=== PATIENT | male | born 1930 | race Caucasian/White ===

== ENCOUNTER 2018-08-15 09:41 | Emergency (ER) | payer OTHER ==
[2018-08-15 11:37] LABS: Absolute Lymphocytes (CBC) 1.3 K/uL (0.7-4.9); Basophils % 0.7 % (0-1.3); Eosinophils % 2.1 % (0-4.4); Hematocrit 43.3 % (39.6-49.0); Lymphocytes % 27.1 % (15.3-44.8); MPV 7.9 fL (7.6-11.3); Monocytes % 9.2 % (3.3-12.3); RBC Red Blood Cell Count 5.01 M/uL (4.33-5.43)
[2018-08-15 11:49] LABS: Potassium 4.8 mmol/L (3.5-5.1)
[2018-08-15 12:18] LABS: Urine Bacteria LOADED /HPF (NONE SEEN); Urine Culture Reflex Order NOT NEEDED; Urine RBC <5 /HPF (NONE SEEN)
[2018-08-15 12:19] LABS: Urine Blood TRACE (NEG); Urine Glucose NEGATIVE (NEG); Urine Protein TRACE (NEG); Urine Specific Gravity 1.015 (1.005-1.030)
[2018-08-15 12:19] LABS: Urine Amorphous Sediment 2+ /HPF (NONE SEEN)
--- NOTE | 2018-08-15 12:47 | ER ---
Nurse's Notes [facility] Name: Chetan Vasquez Age: 88 yrs Sex: Male : 1930 Arrival Date: 08/15/2018 Time: 09:43 Bed 6 Private MD: Diagnosis: Bacterial colonization of bladder;Asymptomatic bacteriuria Presentation: 08/15 10:02 Presenting complaint: Child states: He was seen at the [place] a few weeks ago and they did ph a urine culture and said that he needed to come up here for IV antibiotics because the bacteria is resistant to oral antibiotics." Pt denies urinary symptoms, also denies fever, abdominal pain N/V. Transition of care: patient was not received from another setting of care. Onset of symptoms was August 15, 2018. Risk Assessment: Do you want to hurt yourself or someone else? Patient reports no desire to harm self or others. Initial Sepsis Screen: Does the patient meet any 2 criteria? No. Patient's initial sepsis screen is negative. Does the patient have a suspected source of infection? Yes: Dysuria/Frequency/Urgency/UTI. Care prior to arrival: None. 10:02 Method Of Arrival: Ambulatory ph 10:02 Acuity: SHABNAM 4 ph Historical: - Allergies: 10:23 Sulfa (Sulfonamide Antibiotics); ph - Home Meds: 10:23 lisinopril 20 mg Oral tab 1 tab once daily [Active]; metoprolol tartrate 12.5 mg Oral ph tab 2 times per day [Active]; apixaban oral oral 5 mg 2 times per day [Active]; atorvastatin 40 mg oral tab 1 tab once daily [Active]; finasteride 5 mg oral tab 1 tab once daily [Active]; tamsulosin 0.4 mg oral cp24 1 cap once daily [Active]; - PMHx: 10:23 Hyperlipidemia; Hypertension; prostate problems; ph - PSHx: 10:23 partial colon removal; ph - Immunization history:: Adult Immunizations unknown. - Social history:: Smoking status: Patient uses tobacco products, cigars. - Family history:: not pertinent. - Ebola Screening: : No symptoms or risks identified at this time. - Hospitalizations: : No recent hospitalization is reported. Screenin:30 Abuse screen: Denies threats or abuse. Denies injuries from another. Nutritional ph screening: No deficits noted. Tuberculosis screening: No symptoms or risk factors identified. Fall Risk None identified. Assessment: 10:15 General: Appears in no apparent distress. comfortable, slender, well groomed, Behavior ph is calm, cooperative, appropriate for age, Denies fever, feeling ill. Pain: Denies pain. Neuro: Level of Consciousness is awake, alert, obeys commands, Oriented to person, place, time, situation. Cardiovascular: Capillary refill < 3 seconds in bilateral fingers Patient's skin is warm and dry. Respiratory: Airway is patent Respiratory effort is even, unlabored, Respiratory pattern is regular, symmetrical. GI: Patient currently denies abdominal pain, diarrhea, nausea, vomiting. : Reports urinary frequency, Denies burning with urination, inability to void, pain in suprapubic area with urination. Derm: Skin is intact, is healthy with good turgor, Skin is pink, warm \\T\\ dry. Musculoskeletal: Circulation, motion, and sensation intact. Range of motion: intact in all extremities. 11:30 Reassessment: Patient appears in no apparent distress at this time. Patient and/or ph family updated on plan of care and expected duration. Pain level reassessed. Patient is alert, oriented x 3, equal unlabored respirations, skin warm/dry/pink. 12:30 Reassessment: Patient appears in no apparent distress at this time. Patient and/or ph family updated on plan of care and expected duration. Pain level reassessed. Patient is alert, oriented x 3, equal unlabored respirations, skin warm/dry/pink. Pt resting quietly, awaiting lab and radiology results. Vital Signs: 10:04 BP 145 / 85; Pulse 62; Resp 18; Temp 97.5; Pulse Ox 98% on R/A; Weight 77.11 kg; Pain ph 0/10; 11:00 BP 136 / 78; Pulse 59; Resp 16; Pulse Ox 99% on R/A; ph 12:00 BP 142 / 67; Pulse 61; Resp 16; Pulse Ox 98% on R/A; ph 13:00 BP 129 / 78; Pulse 62; Resp 16; Temp 97.8; Pulse Ox 99% on R/A; Pain 0/10; ph ED Course: 09:43 Patient arrived in ED. mr 09:52 Glenn Gilliam MD is Attending Physician. rn 10:02 Romero, Nirmala, RN is Primary Nurse. ph 10:04 Triage completed. ph 10:24 Arm band placed on. ph 10:30 Patient has correct armband on for positive identification. Bed in low position. Call ph light in reach. Side rails up X 1. Pulse ox on. NIBP on. 11:00 First set of blood cultures drawn by me. jb1 11:15 Second set of blood cultures drawn by me. jb1 11:16 Initial lab(s) drawn, by me, sent to lab. Inserted saline lock: 24 gauge in right jb1 wrist, using aseptic technique. Blood collected. 13:05 No provider procedures requiring assistance completed. IV discontinued, intact, ph bleeding controlled, No redness/swelling at site. Pressure dressing applied. Administered Medications: No medications were administered Outcome: 12:46 Discharge ordered by . rn 13:08 Patient left the ED. ph 13:08 Discharged to home ambulatory, with family. ph 13:08 Condition: good 13:08 Discharge instructions given to patient, family, Instructed on discharge instructions, follow up and referral plans. Demonstrated understanding of instructions, follow-up care. Signatures: Dami Nettles 1 Annabelle Moon Roman, MD MD rn Hall, Patricia, RN RN ph
--- NOTE | 2018-08-15 12:47 | EDPHYS ---
Physician Documentation [facility] Name: Chetan Vasquez Age: 88 yrs Sex: Male : 1930 Arrival Date: 08/15/2018 Time: 09:43 Bed 6 Private MD: ED Physician Glenn Gilliam HPI: 08/15 10:06 This 88 yrs old Male presents to ER via Ambulatory with complaints of Urinary rn Problem. 10:06 The patient presents with. Onset: The symptoms/episode began/occurred at an unknown rn time. Severity of symptoms: At their worst the symptoms were very mild, in the emergency department the symptoms are unchanged. The patient has not experienced similar symptoms in the past. Family reports sent from [place] clinic for admission for IV abx, based on urine sample obtained 2 weeks ago that shows resistant UTI, S. Epi, and told oral abx would not work in this situation. Patient denies symptoms, does have known prostate problems, but no fever/abd pain/confusion/urinary symptoms. . Historical: - Allergies: 10:23 Sulfa (Sulfonamide Antibiotics); ph - Home Meds: 10:23 lisinopril 20 mg Oral tab 1 tab once daily [Active]; metoprolol tartrate 12.5 mg Oral ph tab 2 times per day [Active]; apixaban oral oral 5 mg 2 times per day [Active]; atorvastatin 40 mg oral tab 1 tab once daily [Active]; finasteride 5 mg oral tab 1 tab once daily [Active]; tamsulosin 0.4 mg oral cp24 1 cap once daily [Active]; - PMHx: 10:23 Hyperlipidemia; Hypertension; prostate problems; ph - PSHx: 10:23 partial colon removal; ph - Immunization history:: Adult Immunizations unknown. - Social history:: Smoking status: Patient uses tobacco products, cigars. - Family history:: not pertinent. - Ebola Screening: : No symptoms or risks identified at this time. - Hospitalizations: : No recent hospitalization is reported. ROS: 10:06 Constitutional: Negative for fever, chills, and weight loss, Cardiovascular: Negative rn for chest pain, palpitations, and edema, Respiratory: Negative for shortness of breath, cough, wheezing, and pleuritic chest pain, Abdomen/GI: Negative for abdominal pain, nausea, vomiting, diarrhea, and constipation, : Negative for injury, bleeding, discharge, and swelling, MS/Extremity: Negative for injury and deformity, Skin: Negative for injury, rash, and discoloration, Neuro: Negative for headache, weakness, numbness, tingling, and seizure. Exam: 10:06 Constitutional: This is a well developed, well nourished patient who is awake, alert, rn and in no acute distress. Head/Face: Normocephalic, atraumatic. ENT: MMM Cardiovascular: Regular rate and rhythm. No pulse deficits. Respiratory: Lungs have equal breath sounds bilaterally, clear to auscultation. No increased work of breathing, no retractions or nasal flaring. Abdomen/GI: soft, non-tender Skin: Warm, dry MS/ Extremity: Pulses equal, no cyanosis. Neurovascular intact. Full, normal range of motion. Equal circumference. Neuro: Awake and alert, GCS 15, oriented to person, place, time, and situation. Cranial nerves II-XII grossly intact. Motor strength 5/5 in all extremities. Sensory grossly intact. Cerebellar exam normal. Normal gait. Vital Signs: 10:04 BP 145 / 85; Pulse 62; Resp 18; Temp 97.5; Pulse Ox 98% on R/A; Weight 77.11 kg; Pain ph 0/10; 11:00 BP 136 / 78; Pulse 59; Resp 16; Pulse Ox 99% on R/A; ph 12:00 BP 142 / 67; Pulse 61; Resp 16; Pulse Ox 98% on R/A; ph 13:00 BP 129 / 78; Pulse 62; Resp 16; Temp 97.8; Pulse Ox 99% on R/A; Pain 0/10; ph MDM: 09:53 Patient medically screened. rn 12:41 Differential diagnosis: UTI, colonization. Data reviewed: vital signs, nurses notes, ornament stapler test result(s), and as a result, I will discharge patient. Counseling: I had a detailed discussion with the patient and/or guardian regarding: the historical points, exam findings, and any diagnostic results supporting the discharge/admit diagnosis, lab results, the need for outpatient follow up, to return to the emergency department if symptoms worsen or persist or if there are any questions or concerns that arise at home. Special discussion: I discussed with the patient/guardian in detail that at this point there is no indication for admission to the hospital. It is understood, however, that if the symptoms persist or worsen the patient needs to return immediately for re-evaluation. Based on the history and exam findings, there is no indication for further emergent testing or inpatient evaluation. I discussed with the patient/guardian the need to see the primary care provider for further evaluation of the symptoms. ED course: Patient with 2 week old culture and still afebrile, asymptomatic, has chronic enlarged prostate, repeat labs look the same, normal WBC and negative procalcitonin. Consulted with Dr. Martinez, and we both believe that patient likely colonized, and not active infection, would expect him to present with more symptoms or sepsis picture, still afebrile. . 12:41 ED course: Spoke with family member and patient, comfortable with plan, will get urine rn culture from here to compare to previous and will f/u with pcp. . 08/15 10:05 Order name: Urine Culture rn 08/15 10:05 Order name: CBC with Diff; Complete Time: 11:43 rn 08/15 10:05 Order name: Basic Metabolic Panel; Complete Time: 12:23 rn 08/15 10:05 Order name: Blood Culture Adult (2) 08/15 10:05 Order name: Procalcitonin; Complete Time: 12:23 08/15 10:05 Order name: Urine Microscopic Only; Complete Time: 12:23 08/15 10:05 Order name: Urine Dipstick-Ancillary (obtain specimen); Complete Time: 12:00 08/15 10:05 Order name: IV Start; Complete Time: 11:17 rn 08/15 12:01 Order name: Urine Dipstick--Ancillary (enter results); Complete Time: 12:23 ss Administered Medications: No medications were administered Disposition: 08/15/18 12:46 Discharged to Home. Impression: Bacterial colonization of bladder, Asymptomatic bacteriuria. - Condition is Stable. - Discharge Instructions: Asymptomatic Bacteriuria, Female. - Medication Reconciliation Form, Thank You Letter, Antibiotic Education, Prescription Opioid Use form. - Follow up: Private Physician; When: 2 - 3 days; Reason: Recheck today's complaints, Re-evaluation by your physician. - Problem is an ongoing problem. - Symptoms are unchanged. Signatures: Dispatcher [employer] EDMS Gilliam, Glenn, MD MD rn Romero, Nirmala, RN RN ph Corrections: (The following items were deleted from the chart) 13:08 12:46 08/15/2018 12:46 Discharged to Home. Impression: Bacterial colonization of ph bladder; Asymptomatic bacteriuria. Condition is Stable. Forms are Medication Reconciliation Form, Thank You Letter, Antibiotic Education, Prescription Opioid Use. Follow up: Private Physician; When: 2 - 3 days; Reason: Recheck today's complaints, Re-evaluation by your physician. Problem is an ongoing problem. Symptoms are unchanged. rn
[2018-08-15 13:22] VITALS: BP 145/85; TEMP 97.5; O2SAT 98
== END 2018-08-15 13:08 | disposition home or self-care (01) ==
LOC: ER 09:41
DX: Z22.39 Carrier of other specified bacterial diseases (principal); R82.71 Bacteriuria; E78.5 Hyperlipidemia, unspecified; I10 Essential (primary) hypertension; Z88.2 Allergy status to sulfonamides; Z72.0 Tobacco use
CPT/HCPCS: 36415; 80048; 81003; 81015; 84145; 85025; 87040; 87086; 87088; 99284